=== PATIENT | male | born 1980 | race African-American/Black ===

== ENCOUNTER 2021-04-14 15:53 | Emergency (ER) | payer SELFPAY ==
[~2021-04-14] VITALS: Ht 175.3 cm; Wt 82.0 kg
[2021-04-14] MEDS ORDERED: IBUPROFEN 400MG TABLET PO ONE (19:30)
[2021-04-14] MEDS ORDERED: ACETAMINOPHEN 325MG TABLET PO ONE (19:30)
[2021-04-14 20:15] VITALS: BP 135/75
== END 2021-04-14 20:17 | disposition home or self-care (01) ==
LOC: ER 15:53
DX: M54.5 Low back pain (principal)
CPT/HCPCS: 99283

== ENCOUNTER 2021-12-19 13:55 | Emergency (ER) | payer MEDICAID ==
[~2021-12-19] VITALS: Ht 175.3 cm; Wt 91.0 kg
[2021-12-19 14:12] VITALS: BP 138/91
[2021-12-19] MEDS ORDERED: IBUPROFEN 600MG TABLET PO ONE (16:45)
== END 2021-12-19 17:51 | disposition home or self-care (01) ==
LOC: ER 13:55
DX: S40.012A Contusion of left shoulder, initial encounter (principal); V49.9XXA Car occupant (driver) (passenger) injured in unspecified traffic accident, initial encounter; Y93.89 Activity, other specified; Y92.89 Other specified places as the place of occurrence of the external cause; Y99.8 Other external cause status
CPT/HCPCS: 73030; 73060; 99284